=== PATIENT | female | born 1980 | race Caucasian/White ===

== ENCOUNTER 2019-01-05 13:46 | Emergency (ER) | payer MEDICAID ==
[~2019-01-05] VITALS: Ht 165.1 cm; Wt 111.4 kg
[2019-01-05 13:55] VITALS: BP 116/71
[2019-01-05] MEDS ORDERED: HYDROcodone/acetaminophen 10/325mg tab PO ONE (14:45)
[2019-01-05] MEDS ORDERED: acetaminophen 325mg tablet PO ONE (15:50)
[2019-01-05] MEDS ORDERED: ASPI-1264 PO (15:59)
--- NOTE | 2019-01-05 16:03 | NUR ---
GAVE PT A DONUT/COCCYX PILLOW, PT REPORTS SHE HAD AN EPISODE OF VOMITTING, PT REPORTED SHE IS DIABETIC, BG CHECKED 86, PT REPORTS SHE VOMITS WHEN HER BG GETS LOWER, PT GIVEN YOGURT, APPLESAUCE AND CRACKERS, KEVIN RODRIGUEZ INFORMED OF ABOVE.
[2019-01-06] MEDS ORDERED: TRAM50TA2 PO (02:30)
== END 2019-01-05 16:32 | disposition home or self-care (01) ==
LOC: ER 13:47
DX: M53.3 Sacrococcygeal disorders, not elsewhere classified (principal); M54.5 Low back pain; E66.9 Obesity, unspecified; G89.29 Other chronic pain; M79.604 Pain in right leg; Z59.0 Homelessness; Z56.0 Unemployment, unspecified; Z98.890 Other specified postprocedural states; Z88.6 Allergy status to analgesic agent; W18.49XA Other slipping, tripping and stumbling without falling, initial encounter; Y93.01 Activity, walking, marching and hiking; Y92.89 Other specified places as the place of occurrence of the external cause; Y99.9 Unspecified external cause status
CPT/HCPCS: 72190; 82948; 99283

== ENCOUNTER 2019-01-05 23:52 | Emergency (ER) | payer MEDICAID ==
[~2019-01-05] VITALS: Ht 165.1 cm; Wt 111.3 kg
[~2019-01-05 23:52] MED LIST: ASPI-1264 PO
[2019-01-05 23:56] VITALS: BP 140/84
[2019-01-06] MEDS ORDERED: HYDROcodone/acetaminophen 5mg/325mg tablet PO ONE (02:05)
[2019-01-06] MEDS ORDERED: TRAM50TA2 PO (02:30)
== END 2019-01-06 03:01 | disposition home or self-care (01) ==
LOC: ER 23:53
DX: M53.3 Sacrococcygeal disorders, not elsewhere classified (principal); Z59.0 Homelessness; Z56.0 Unemployment, unspecified; Z88.6 Allergy status to analgesic agent; W18.49XA Other slipping, tripping and stumbling without falling, initial encounter; Y93.89 Activity, other specified; Y92.89 Other specified places as the place of occurrence of the external cause; Y99.9 Unspecified external cause status
CPT/HCPCS: 99283

== ENCOUNTER 2019-01-12 10:55 | Emergency (ER) | payer MEDICAID ==
[~2019-01-12] VITALS: Ht 165.1 cm; Wt 127.0 kg
[~2019-01-12 10:55] MED LIST changes: +TRAM50TA2 PO
[2019-01-12 10:58] VITALS: BP 126/73
[2019-01-12] MEDS ORDERED: NYSPWD TP (11:31)
== END 2019-01-12 12:17 | disposition home or self-care (01) ==
LOC: ER 10:55
DX: L30.4 Erythema intertrigo (principal); M53.3 Sacrococcygeal disorders, not elsewhere classified; E78.00 Pure hypercholesterolemia, unspecified; I10 Essential (primary) hypertension; E11.9 Type 2 diabetes mellitus without complications; Z88.6 Allergy status to analgesic agent; Z79.82 Long term (current) use of aspirin; Z79.899 Other long term (current) drug therapy; Z59.0 Homelessness; Z56.0 Unemployment, unspecified
CPT/HCPCS: 99284